=== PATIENT | female | born 1960 | race Caucasian/White ===

== ENCOUNTER 2024-11-27 12:02 | Emergency (ER) | payer BC, SELFPAY ==
--- OUTSIDE RECORDS SUMMARY | 2024-11-26 08:30 | XMS_ITS | Encounter Summary ---
Author Organization [facility] Address [address] [place] [address] Care Team Providers Care Small Business Sales Representative Name Role Phone Lakeisha Figueroa MD Primary Care Provider [phone] Reason for Visit * Reason Comments Diabetes Fsbs 134 Palpitations Encounter Details Date Type Department Care Team (Late st Contact Info) Description 11/26/2024 8:30 AM EDT Office Visit Adult Medicine [address] [phone] Lakeisha Figueroa MD [address] [place] [address] Viral illness (Primary Dx); Type 2 diabetes mellitus with obesity; Hyperlipidemia LDL goal <70; Gastroesophageal reflux disease without esophagitis; Palpitations Social History Tobacco Use Types Packs/Day Years Used Date Smoking Tobacco: Former Cigarettes Q uit: 02/13/1991 Smokeless Tobacco: Never Tobacco Cessation:Counseling Given: Not Answered Alcohol Use Standard Drinks/Week Comments Yes 0 (1 standard drink = 0.6 oz pur e alcohol) Comments Unknown Sex and Gender Information Value Date Recorded Sex Assigned at Female 01/15/2024 5:32 PM EST Legal Sex Female 10:43 AM EST Gender Identity Female 01/15/2024 5:32 PM EST Sexual Orientation Straight 01/15/2024 5: 32 PM EST documented as of this encounter Last Filed Vital Signs Vital Sign Reading Time Taken Comments Blood Pressure 112/60 11/26/2024 8:25 AM EDT Pulse 102 11/26/2024 8:25 AM EDT Temperature 35.8 C (96.4 F) 11/26/2024 8:25 AM EDT Respiratory Rate 16 11/26/2024 8:25 AM EDT Oxygen Saturation 95% 11/26/2024 8:25 AM EDT Inhaled Oxygen Concentration - - Weight 74.6 kg (164 lb 8 oz) 11/26/2024 8:25 AM EDT Height 157.5 cm (5' 2 ) 11/26/2024 8:25 AM EDT Body Mass Index 30.09 11/26/2024 8:25 AM EDT documented in this encounter Ordered Prescriptions Prescription Sig Dispense Quantity Refills Last Filled Start Date End Date metFORMIN XR (GLUCOPHAGE-XR) 500 mg 24 hr tablet Take 2 tablets (1,000 mg total) by mouth 1 (one) time each day with breakfast. 180 tablet 1 11/26/2024 documented in this encounter Progress Notes * Lakeisha Figueroa MD - 11/26/2024 8:30 AM EDT Chief Complaint: Chief Complaint Patient presents with Diabetes Fsbs 134 Palpitations IDENTIFIER: Cheryl Flowers is a 64 y.o. old female HPI She comes for evaluation with [id number] diabetes with obesity, GE reflux, elevated cholesterol. She recently had a glycohemoglobin rise from 6.9 up to 8 and was started on Ozempic, she took 4 doses total and after each dose she developed some palpitations which lasted for a while and then stopped. She has discontinued taking the Ozempic, her last dose was 9 days ago. She notes that she is still taking the metformin 1 a day as well as Lipitor for her cholesterol and omeprazole for reflux with control of the reflux and reasonable control of the cholesterol. She notes that a month ago she did test positive for COVID. 5 days ago she developed a fever with a temp up to 101, she did not retest for COVID, she has not had any significant shortness of breath, no sputum production, no sore throat or ear pain. She has not had any Tylenol or Advil since yesterday and is not running a fever today. 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 Surgical History: Surgical History[1] Family History: Family History[2] Social History: Social History Tobacco Use Smoking status: Former Current packs/day: 0.00 Types: Cigarettes Quit date: 02/13/1991 Years since quittin.8 Smokeless tobacco: Never Substance Use Topics Alcohol use: Yes Allergies: Latex Medications: Medications Taking[3] Medication Discontinued/Reordered: Medications Discontinued During This Encounter Medication Reason semaglutide (OZEMPIC) 0.25 mg or 0.5 mg (2 mg/3 mL) injection pen metFORMIN XR (GLUCOPHAGE-XR) 500 mg 24 hr tablet Reorder Vitals: Blood pressure 112/60, pulse 102, temperature 35.8 ??C (96.4 ??F), temperature source Temporal, resp. rate 16, height 1.575 m (62 ), weight 74.6 kg (164 lb 8 oz), SpO2 95%. Body mass index is 30.09 kg/m??.BMI is greater than 25.0 (above the normal range) - see Plan Physical Exam: General: patient is in no acute distress. Tympanic membranes clear, no air fluid levels or erythema. Pharynx clear without tonsillar enlargement or exudates. Neck supple without adenopathy, no thyromegaly. Lungs clear with auscultation. Heart: regular S1S2 without murmur, rub or gallop. Extremitieswithout cyanosis, clubbing or edema. Labs: Lab Results Component Value Date CHOL 208 (H) 10/17/2024 TRIG 164 (H) 10/17/2024 HDL 59 10/17/2024 LDLCALC 116 (H) 10/17/2024 VLDL 32.8 10/17/2024 NONHDLC 149 (H) 10/17/2024 CHOLHDL 3.5 10/17/2024 Lab Results Component Value Date HGBA1C 8.0 (H) 10/17/2024 Lab Results Component Value Date GLUCOSE 158 (H) 10/17/2024 CALCIUM 9.5 10/17/2024 NA 137 10/17/2024 K 4.3 10/17/2024 CO2 26 10/17/2024 CL 104 10/17/2024 BUN 22 10/17/2024 CREATININE 0.71 10/17/2024 Impression: 1. Viral illness 2. Type 2 diabetes mellitus with obesity 3. Hyperlipidemia LDL goal <70 4. Gastroesophageal reflux disease without esophagitis 5. Palpitations Assessment and Plan: Her glycohemoglobin has gone up and she is not tolerating the Ozempic, she has not had any palpitations since stopping the Ozempic and she will continue off the medication, if she is having recurrentpalpitations she will seek repeat medical attention. Reflux remains controlled on omeprazole which she will continue. Given the elevated glycohemoglobin she will increase the metformin to 1000 mg daily and continue with strict low sugar diet, continue as well with a low-cholesterol diet and the Lipitor for her cholesterol with LDL 116, goal would be less than 100. She does appear to have a viral respiratory syndrome, needs to wait until she has been fever free and feeling well for a week before getting the flu vaccine and to wait 90 days before getting the COVID-vaccine. Her lungs are clear on exam today and she will continue with conservative treatment. She will keep her scheduled Januaryappointment. Myself and my colleagues have maintained a long-term, longitudinal relationship with this patient, overseeing care of chronic conditions including diabetes with obesity, elevated cholesterol, GE reflux. This care relationship has significantly influenced my decision making and treatment plans during today's encounter. [1] Past Surgical History: Procedure Laterality Date BREAST BIOPSY Left 1999ish neg BREAST SURGERY Right 1991 blocked milk duct SECTION COLONOSCOPY 09/26/2011 tics; repeat in ten yrs COLONOSCOPY 11/26/2021 diverticulosis LITHOTRIPSY Right 2013 TUBAL LIGATION [2] Family History Problem Relation Name Age of Onset Other (Other: endocarditis) Mother , 60 crohns disease Colon polyps Father dxd 60s, dementia, Other (Other: hepatitis C) Brother Diabetes Maternal Grandmother Other (Other: old age) Paternal Grandmother 102 Crohn's disease Son at 27, overdose Breast cancer Other mat cousin dx 45 [3] Outpatient Medications Marked as Taking for the 11/26/24 encounter (Office Visit) with Lakeisha Figueroa MD Medication Sig Dispense Refill atorvastatin (LIPITOR) 20 mg tablet TAKE 1 TABLET BY MOUTH EVERYDAY AT BEDTIME 90 tablet 1 blood sugar diagnostic (FreeStyle Lite Strips) test strip Use daily fluocinonide (LIDEX) 0.05 % topical solution Apply topically 1 (one) time each day. 60 mL 1 FREESTYLE LANCETS MISC Use to check fasting blood glucose once daily. E11.69 hydrocortisone (WESTCORT) 0.2 % cream APPLY TO THE AFFECTED AREAS TWICE DAILY NEEDED metFORMIN XR (GLUCOPHAGE-XR) 500 mg 24 hr tablet Take 2 tablets (1,000 mg total) by mouth 1 (one) time each day with breakfast. 180 tablet 1 omeprazole (PRILOSEC) 20 mg tablet,delayed release (DR/EC) Take 1 Tablet by mouth daily. [DISCONTINUED] metFORMIN XR (GLUCOPHAGE-XR) 500 mg 24 hr tablet TAKE 1 TABLET BY MOUTH EVERY DAY WITH BREAKFAST 90 tablet 1 documented in this encounter Plan of Treatment Upcoming Encounters Date Type Department Care Team (Late st Contact Info) Description 02/05/2025 3:30 PM EST Office Visit Adult Medicine [address] [phone] Lakeisha Figueroa MD [address] [place] [address] documented as of this encounter Visit Diagnoses Diagnosis Viral illness- Primary Unspecified viral infection, in conditions classified elsewhere and of unspecified site Type 2 diabetes mellitus with obesity Hyperlipidemia LDL goal <70 Other and unspecified hyperlipidemia Gastroesophageal reflux disease without esophagitis Esophageal reflux Palpitations documented in this encounter Discontinued Medications Medication Sig Discontinue Reason Start Date End Da te semaglutide (OZEMPIC) 0.25 mg or 0.5 mg (2 mg/3 mL) injection penIndications:Type 2 diabetes mellitus with obesity Inject 0.25 mg under the skin every 7 (seven) days. Then increase to 0.5 mg after 4 weeks 10/22/2024 11/26/2024 metFORMIN XR (GLUCOPHAGE-XR) 500 mg 24 hr tablet TAKE 1 TABLET BY MOUTH EVERY DAY WITH BREAKFAST Reorder 09/16/2024 11/26/2024 documented as of this encounter Care Teams Small Business Sales Representative Relationship Specialty Start Date End Date Lakeisha Figueroa MD [address] [place] [address] PCP - General Internal Medicine 02/01/1995 documented as of this encounter
--- NOTE | ~2024-11-27 | CT_ITS ---
CLINICAL HISTORY: shortness of breath, elevated D-dimer CTA chest with 3-D postprocessing Comparison: None available Findings: Study quality is adequate for the diagnosis of pulmonary embolism. No pulmonary embolism. Heart size within normal limits. RV/LV ratio is normal. No calcified coronary artery disease. Pericardial fluid measuring up to 5 mm in thickness. No aortic dissection or aneurysm. Trace calcified atherosclerotic disease. No lymphadenopathy. No pulmonary pathology. No pneumothorax or pleural effusion. No acute osseous or soft tissue abnormality. No acute pathology in the imaged portion of the upper abdomen. Decreased attenuation of the liver. Impression: No pulmonary embolism or acute pulmonary pathology. This document has been electronically signed by: Rosa Rene MD on 11/27/2024 17:48:35
--- NOTE | ~2024-11-27 | XR_ITS ---
EXAMINATION: XR CHEST CLINICAL INFORMATION: fever, JIMENEZ COMPARISON: None available. TECHNIQUE: PA and lateral views. FINDINGS: No consolidation, pleural fissure pneumothorax. Mild prominence of the interstitial lung markings. Cardiomediastinal silhouette size is normal. Mild multilevel thoracic spondylosis. Vascular clips in the right upper quadrant abdomen and likely cholecystectomy. XR/XR chest 2V IMPRESSION: Acute small airway inflammatory processes should be considered in the correct clinical settings. Electronically signed by: Dhruv Harris MD 11/27/2024 12:41 PM EDT
[2024-11-27 12:10] VITALS: BP 135/67; PULSE 95; RESP 20; TEMP 36.4; O2SAT 96; BMI 29.7
--- NOTE | 2024-11-27 12:11 | ED.GENADULT ---
HPI - General Adult General Chief complaint: Fever Stated complaint: flu symptoms Time Seen by Provider: 11/27/24 13:08 Source: patient and RN notes reviewed Mode of arrival: ambulatory Limitations: no limitations History of Present Illness ED Provider: Simin Bennett PA-C [facility] narrative: This is a 64-year-old female, with a past medical history of diabetes, hyperlipidemia, and GERD who presents emergency department with concerns of flu-like symptoms for the past week. Patient reports a 1 week history of body aches, fatigue, and a non-productive cough. Patient also reports fevers up to 101.3 at home and associated chills. Patient denies any nasal congestion, sore throat, sinus pressure, headache, chest pain, or lightheadedness. Patient reports taking Tylenol PM for the fever and body aches, with her last dose being 11 am this morning. Patient additionally reports loss of appetite, but drinking plenty of water. Reports some chest palpitations and dyspnea on exertion. Patient reports seeing her primary care provider yesterday in office, who she instructed she was no longer taking her Ozempic prescription, which her PCP doubled her metformin dose and discontinued the Ozempic. No other complaints or concerns at this time. MD complaint: Cough, body aches Onset (ago): day(s) Severity: moderate Relieving factors: none Exacerbating factors: none Associated symptoms: cough, fever/chills, loss of appetite, malaise, shortness of breath and weakness Treatments prior to arrival: none Related Data Previous Rx's ?Medication ?Instructions ?Recorded doxycycline monohydrate 100 mg 100 mg PO BID #14 caps 11/27/24 capsule Allergies Allergy/AdvReac Type Severity Reaction Status Date / Time latex Allergy Rash Verified 11/27/24 12:15 Review of Systems Review of Systems: Yes all other systems are reviewed and are negative Constitutional: Constitutional: Reports as per [facility] Social History Social History Alcohol intake: current Alcohol intake frequency: a few times a week Smoked in Last 30 Days: No Use of substances other than those prescribed or required for medical reasons: Yes Substance Use Type: Marijuana Advance Directives: No Advance Directives Information Provided: Yes Physical Exam ED Vital Signs: Vital Signs - 24 hr 11/27/24 18:13 11/27/24 18:37 11/27/24 19:07 Temperature 99.1 F 99.1 F Pulse Rate 88 108 H 108 H Respiratory Rate 20 20 Blood Pressure 136/81 000/00 L Pulse Oximetry 92 92 92 Oxygen Delivery Method Room Air Room Air Room Air BMI result Body Mass Index 29.7 Const General: cooperative, no acute distress, alert and awake Orientation/consciousness: patient oriented x3 Limitations: no limitations HENMT Head: Yes normal to inspection, Yes normocephalic and Yes atraumatic Ears: hearing grossly normal bilaterally and TM's normal bilaterally General nose exam: Normal external nose present Face and sinus: Yes normal facial exam Mouth: Normal oral and palatal mucosa present, oropharynx normal and moist mucous membranes Throat: Yes posterior oropharynx normal Eyes General: appearance normal, both eyes and all related structures Eyelids: Yes eyelids normal Conjunctivae: conjunctivae normal Sclerae: sclerae normal Pupils: Equal, round and reactive pupils present EOM: EOMs intact bilaterally Neck Neck: Yes normal visual inspection, Yes full ROM and Yes no lymphadenopathy Lymphatic: no lymphadenopathy noted Chest Chest palpation & inspection: normal inspection of the chest Resp Effort & Inspection: normal respiratory effort Auscultation: clear to auscultation bilaterally Cardio Jugular venous distension: no JVD Palpation: normal PMI Rate: regular rate Rhythm: regular rhythm Heart sounds: S1 normal heart sound present and S2 normal heart sound present GI Other: Abdomen is soft, nontender, nondistended Inspection: Yes normal to inspection Palpation (GI): Soft to palpation and nontender Skin General skin exam: no rashes or lesions noted Trauma: no lacerations or abrasions Wounds: no wounds Neuro General: patient oriented x3 Cranial nerves: Yes Equal, round and reactive pupils present Extrem Other: No calf tenderness, no pedal edema noted. General: Yes normal to inspection Right upper extremity: normal to inspection Left upper extremity: normal to inspection Right lower extremity: normal to inspection Left lower extremity: normal to inspection Course Course Course Narrative: This is a Rapid Medical Examination (RME) performed by Rochelle Bryant PA-C in triage. Full HPI, ROS, assessment and treatment plan per primary provider in the Main ED. Hx: 64 yo F here w/ flu like sx x 7 days. reports fever, myalgias, poor appetite, JIMENEZ. TMAX 101.3F . took tylenol cold/flu around 1110 this morning. started ozempic 4-5 wks ago for her DM, however has since discontinued this d/t SE. patient reports covid infection 3 weeks ago. Plan: labs, viral swabs, cxr Consultations Consultation #1: Attending note:Regino The patient is a 64-year-old female who presents with respiratory symptoms and a fever. She had COVID a few weeks ago. She now feels as if she has gotten a new respiratory syndrome with shortness of breath and a cough and a fever. Her CBC is significant for a normal white blood count of 8.5 but with a lymphocyte predominance. She has only 24% neutrophils. She has 57% lymphocytes, 11% atypical lymphocytes, and 7% bands. Because COVID has been describe has been thrombogenic and since she had some oxygen saturations that seemed to be in the low 90s despite a clear chest x-ray and fairly clear lungs on exam we sent a D-dimer. This was elevated. Therefore a CT pulmonary angiogram was done. The CT of pulmonary angiogram really does not show much pathology at all. There was no evidence of pulmonary emboli or significant lung disease. Ultimately to address her oxygen saturations which seemed to sometimes go to the low 90s she was instructed in the use of an albuterol inhaler. She will also be started on a course of doxycycline. She should follow up with the regular doctor next week. Time: 19:05 Medications Administered Discontinued Medications Generic Name Dose Route Start Last Admin Trade Name Freq PRN Reason Stop Dose Admin Doxycycline Monohydrate 100 mg 11/27/24 18:53 11/27/24 19:07 Doxycycline Monohydrate 100 Mg Capsule PO 11/27/24 18:54 100 mg ONCE ONE Administration Iohexol 100 ml 11/27/24 16:55 11/27/24 16:58 Iohexol 350 Mg/Ml 100 Ml Infus..Btl IV 11/27/24 16:56 65 ml ONCE ONE Administration Medical Decision Making Medical Decision Making [facility] Narrative: This is a 64-year-old female, with a past medical history of diabetes, hyperlipidemia, and GERD who presents emergency department with concerns of flu-like symptoms for the past week. On arrival, pt is well appearing, under no acute distress, vital signs normal. Most likely diagnosis at this time is viral URI due to 1 week history of fever, body aches, weakness, decreased appetite, JIMENEZ, and chills. Flu and COVID considered due to viral symptoms, but less likely as viral serology came back negative. Bronchitis considered due to nonproductive cough, but less likely without predisposing illness. Bacterial pneumonia considered but less likely due to negative CXR and lack of productive cough. Pulmonary embolism considered but unlikely without shortness of breath, recent travel, or chest pain or discomfort. 4:45 PM 11/27/2024 (Simin Bennett PA-C): Patient's overall workup today was reassuring, she has no leukocytosis, stable H&H, she does have slight elevation in AST and ALT at 67 and 68, CRP elevated at 3.05, troponin less than 2.7, urine with trace ketones, C viral panel negative. COVID, flu negative. Chest x-ray does not show a pneumonia. EKG normal sinus rhythm with no acute ischemic changes. Patient was seen and evaluated by my attending physician, Dr. Lacy, who given patient recently had a COVID infection, will obtain D-dimer to ensure no PE. D-dimer was found to be elevated at 673. Given this, CTA was ordered. This is pending at this time. Her vitals remained stable, she is afebrile, speaking full sentences under no acute distress. We will continue to closely monitor. Vital signs remain to be normal. 5:42 PM 11/27/2024 (Simin Bennett PA-C): Sign-out given to my attending physician, Dr. Lacy pending CTA. Differential Diagnosis Differential Diagnoses: The differential diagnosis associated with the presentation includes See above Admission/Observation Consideration of admission/observation: Escalation of care including admission/observation considered Lab Data [facility] Lab Attestation statement: I reviewed the patient's lab results. See [facility] 11/27/24 12:24 11/27/24 12:24 Labs: Lab Results 11/27/24 11/27/24 11/27/24 Range/Units 12:24 13:20 14:38 WBC 8.5 (4.8-10.8) X10*3/uL RBC 4.28 (4.20-5.50) X10*6/uL Hgb 13.7 (12.0-16.0) g/dl Hct 40.1 (37.0-47.0) % MCV 93.7 (80.0-98.0) fL MCH 32.0 (27.0-33.0) pg MCHC 34.2 (31.0-35.0) g/dl RDW 12.7 (11.0-16.0) % Plt Count 167 (160-400) X10*3/uL MPV 9.4 (9.4-12.3) fL Immature Gran % (Auto) Cancelled Neut % (Auto) Cancelled Lymph % (Auto) Cancelled [place] % (Auto) Cancelled Eos % (Auto) Cancelled Baso % (Auto) Cancelled Lymph # (Auto) Cancelled [place] # (Auto) Cancelled Eos # (Auto) Cancelled Baso # (Auto) Cancelled Abs Immat Gran (auto) Cancelled Absolute Neuts (auto) Cancelled Absolute Nucleated RBC 0.000 (0.0-0.012) X10*3/uL Nucleated RBC % (auto) 0.0 (0.0-0.2) /100WBC Neutrophils % (Manual) 24 L (45-73) % Band Neutrophils % 7 H (3-5) % Lymphocytes % (Manual) 57 H (20-40) % Atypical Lymphs % (Man) 11 H (0-6) % Monocytes % (Manual) 1 L (2-11) % Abs Neuts (Manual) 2.6 (2.0-8.3) X10*3/uL Lymphocytes # (Manual) 4.8 (1.2-4.9) X10*3/uL Atyp Lymphs # (Manual) 0.9 x10*3/uL Monocytes # (Manual) 0.1 (0.1-1.2) X10*3/uL Platelet Estimate NORMAL (NORMAL) Large Platelets PRESENT Plt Morphology Comment NORMAL RBC Morphology NORMAL Smear Path Review SEE NOTE D-Dimer High Sensitivty NG/ML Sodium 136 (135-145) mmol/L Potassium 3.5 (3.3-5.1) mmol/L Chloride 103 (96-108) mmol/L Carbon Dioxide 24 (22-29) mmol/L Anion Gap 13 (12-20) BUN 10 (9-16) mg/dL Creatinine 0.66 (0.5-1.4) mg/dL Estim Creat Clear Calc 81.9 Estimated GFR > 60 Random Glucose 112 (60-115) mg/dL Calcium 8.6 (8.4-10.2) mg/dL Magnesium 1.9 (1.6-2.6) mg/dL Total Bilirubin 0.6 (0.0-1.0) mg/dL AST 67 H (5-31) U/L ALT 68 H (0-31) U/L Alkaline Phosphatase 57 (39-117) U/L Troponin I High Sens < 2.7 (<3.5-17.0) ng/L C-Reactive Protein 3.05 H (< or = 0.50) mg/dL NT-Pro-B Natriuret Pep 44.5 (<300) pg/mL Total Protein 6.8 (6.5-8.0) g/dL Albumin 3.8 (3.5-5.0) g/dL Lipase 24 (8-78) U/L Urine Color Yellow Urine Appearance Clear Urine pH 6.5 (5.0-9.0) Ur Specific [place] 1.010 (1.005-1.025) Urine Protein Negative (Neg-Trace) mg/dL Urine Glucose (UA) Negative (Negative) mg/dL Urine Ketones Trace (Negative) mg/dL Urine Blood Negative (Negative) Urine Nitrite Negative (Negative) Ur Leukocyte Esterase Negative (Negative) Respiratory Panel [place] See Note Adenovirus (Rapid PCR) Not Detected (Not Detect.) B.pert (TEM-PCR) Not Detected (Not Detect.) B.parapertussis DNA PCR Not Detected (Not Detect.) C. pneumoniae DNA (PCR) Not Detected (Not Detect.) Coronavirus OC43 (PCR) Not Detected (Not Detect.) Coronavirus HKU1 (PCR) Not Detected (Not Detect.) Coronavirus 229E (PCR) Not Detected (Not Detect.) COVID-19 (DORON) Negative (Negative) COVID-19 Clin Com See Note Coronavirus NL63 (PCR) Not Detected (Not Detect.) Human Metapneumovir PCR Not Detected (Not Detect.) Influenza Type A (TAINA) Negative (Negative) Influenza A (RT-PCR) Not Detected (Not Detect.) Influenza A (H1) PCR Not Detected (Not Detect.) Influ A (H1/09) PCR Not Detected (Not Detect.) Influenza A (H3) PCR Not Detected (Not Detect.) Influenza Type B (TAINA) Negative (Negative) Influenza B (RT-PCR) Not Detected (Not Detect.) Influenza A & B Note See Note M. pneumoniae (PCR) Not Detected (Not Detect.) Parainfluenza 1 (PCR) Not Detected (Not Detect.) Parainfluenza 2 (PCR) Not Detected (Not Detect.) Parainfluenza 3 (PCR) Not Detected (Not Detect.) Parainfluenza 4 (PCR) Not Detected (Not Detect.) RSV (PCR) Not Detected (Not Detect.) Entero/Rhino (PCR) Not Detected (Not Detect.) SARS-CoV-2 RNA (RT-PCR) Not Detected (Not Detect.) 11/27/24 Range/Units 15:38 WBC (4.8-10.8) X10*3/uL RBC (4.20-5.50) X10*6/uL Hgb (12.0-16.0) g/dl Hct (37.0-47.0) % MCV (80.0-98.0) fL MCH (27.0-33.0) pg MCHC (31.0-35.0) g/dl RDW (11.0-16.0) % Plt Count (160-400) X10*3/uL MPV (9.4-12.3) fL Immature Gran % (Auto) Neut % (Auto) Lymph % (Auto) [place] % (Auto) Eos % (Auto) Baso % (Auto) Lymph # (Auto) [place] # (Auto) Eos # (Auto) Baso # (Auto) Abs Immat Gran (auto) Absolute Neuts (auto) Absolute Nucleated RBC (0.0-0.012) X10*3/uL Nucleated RBC % (auto) (0.0-0.2) /100WBC Neutrophils % (Manual) (45-73) % Band Neutrophils % (3-5) % Lymphocytes % (Manual) (20-40) % Atypical Lymphs % (Man) (0-6) % Monocytes % (Manual) (2-11) % Abs Neuts (Manual) (2.0-8.3) X10*3/uL Lymphocytes # (Manual) (1.2-4.9) X10*3/uL Atyp Lymphs # (Manual) x10*3/uL Monocytes # (Manual) (0.1-1.2) X10*3/uL Platelet Estimate (NORMAL) Large Platelets Plt Morphology Comment RBC Morphology Smear Path Review D-Dimer High Sensitivty 673 NG/ML Sodium (135-145) mmol/L Potassium (3.3-5.1) mmol/L Chloride (96-108) mmol/L Carbon Dioxide (22-29) mmol/L Anion Gap (12-20) BUN (9-16) mg/dL Creatinine (0.5-1.4) mg/dL Estim Creat Clear Calc Estimated GFR Random Glucose (60-115) mg/dL Calcium (8.4-10.2) mg/dL Magnesium (1.6-2.6) mg/dL Total Bilirubin (0.0-1.0) mg/dL AST (5-31) U/L ALT (0-31) U/L Alkaline Phosphatase (39-117) U/L Troponin I High Sens (<3.5-17.0) ng/L C-Reactive Protein (< or = 0.50) mg/dL NT-Pro-B Natriuret Pep (<300) pg/mL Total Protein (6.5-8.0) g/dL Albumin (3.5-5.0) g/dL Lipase (8-78) U/L Urine Color Urine Appearance Urine pH (5.0-9.0) Ur Specific [place] (1.005-1.025) Urine Protein (Neg-Trace) mg/dL Urine Glucose (UA) (Negative) mg/dL Urine Ketones (Negative) mg/dL Urine Blood (Negative) Urine Nitrite (Negative) Ur Leukocyte Esterase (Negative) Respiratory Panel [place] Adenovirus (Rapid PCR) (Not Detect.) B.pert (TEM-PCR) (Not Detect.) B.parapertussis DNA PCR (Not Detect.) C. pneumoniae DNA (PCR) (Not Detect.) Coronavirus OC43 (PCR) (Not Detect.) Coronavirus HKU1 (PCR) (Not Detect.) Coronavirus 229E (PCR) (Not Detect.) COVID-19 (DORON) (Negative) COVID-19 Clin Com Coronavirus NL63 (PCR) (Not Detect.) Human Metapneumovir PCR (Not Detect.) Influenza Type A (TAINA) (Negative) Influenza A (RT-PCR) (Not Detect.) Influenza A (H1) PCR (Not Detect.) Influ A (H1/09) PCR (Not Detect.) Influenza A (H3) PCR (Not Detect.) Influenza Type B (TAINA) (Negative) Influenza B (RT-PCR) (Not Detect.) Influenza A & B Note M. pneumoniae (PCR) (Not Detect.) Parainfluenza 1 (PCR) (Not Detect.) Parainfluenza 2 (PCR) (Not Detect.) Parainfluenza 3 (PCR) (Not Detect.) Parainfluenza 4 (PCR) (Not Detect.) RSV (PCR) (Not Detect.) Entero/Rhino (PCR) (Not Detect.) SARS-CoV-2 RNA (RT-PCR) (Not Detect.) Independent Interpretation I performed an independent interpretation of an: EKG Interpretation: EKG normal sinus rhythm at a ventricular rate of 82 beats per minute, IN interval 156, QT QTC 392/457, no STEMI. Radiology Impression Discussion of test interpretation with radiology: I have reviewed the radiologist's reading. Radiologist Impression: EXAMINATION: XR CHEST CLINICAL INFORMATION: fever, JIMENEZ COMPARISON: None available. TECHNIQUE: PA and lateral views. FINDINGS: No consolidation, pleural fissure pneumothorax. Mild prominence of the interstitial lung markings. Cardiomediastinal silhouette size is normal. Mild multilevel thoracic spondylosis. Vascular clips in the right upper quadrant abdomen and likely cholecystectomy. XR/XR chest 2V IMPRESSION: Acute small airway inflammatory processes should be considered in the correct clinical settings. Electronically signed by: Dhruv Harris MD 11/27/2024 12:41 PM EDT Dictated By: Dhruv Trinh MD Findings: Study quality is adequate for the diagnosis of pulmonary embolism. No pulmonary embolism. Heart size within normal limits. RV/LV ratio is normal. No calcified coronary artery disease. Pericardial fluid measuring up to 5 mm in thickness. No aortic dissection or aneurysm. Trace calcified atherosclerotic disease. No lymphadenopathy. No pulmonary pathology. No pneumothorax or pleural effusion. No acute osseous or soft tissue abnormality. No acute pathology in the imaged portion of the upper abdomen. Decreased attenuation of the liver. Impression: No pulmonary embolism or acute pulmonary pathology. This document has been electronically signed by: Rosa Rene MD on 11/27/2024 17:48:35 Dictated By: Rosa Davalos MD Discharge Plan Discharge Clinical Impression: Acute respiratory infection Patient Disposition: Home, Self-Care Additional Instructions: Your testing in the emergency room today is very reassuring from the point of view of any dangerous process. Please take the antibiotic doxycycline twice a day as prescribed. Next dose tomorrow. Please use the albuterol inhaler for coughing or any sense of shortness of breath. Please contact your primary care doctor tomorrow to set up a follow up appointment next week to see how you are doing. Return to the emergency room if significantly worse at any time. Prescriptions: New doxycycline monohydrate 100 mg capsule 100 mg PO BID Qty: 14 0RF Referrals: Lakeisha Figueroa MD [Primary Care Provider, Internal Medicine] Interventions: ED Discharge Assessment Last Done: 11/27/24 19:07 Discharge Date/Time: 11/27/24 19:09 Print Language: Afghan
[2024-11-27 12:34] LABS: Hematocrit 40.1 % (37.0-47.0); Hemoglobin 13.7 g/dl (12.0-16.0); Mean Corpuscular HGB Conc 34.2 g/dl (31.0-35.0); Mean Corpuscular Hemoglobin 32.0 pg (27.0-33.0); Mean Corpuscular Volume 93.7 fL (80.0-98.0); NRBC Abs Auto 0.000 X10*3/uL (0.0-0.012); NRBC Pct Auto 0.0 /100WBC (0.0-0.2); Platelet Count 167 X10*3/uL (160-400); Red Blood Count 4.28 X10*6/uL (4.20-5.50); White Blood Count 8.5 X10*3/uL (4.8-10.8)
[2024-11-27 12:50] LABS: Alanine Aminotransferase 68 U/L (0-31); Albumin Level 3.8 g/dL (3.5-5.0); Alkaline Phosphatase 57 U/L (39-117); Anion Gap 13 (12-20); Aspartate Amino Transferase 67 U/L (5-31); Blood Urea Nitrogen 10 mg/dL (9-16); Calcium 8.6 mg/dL (8.4-10.2); Carbon Dioxide 24 mmol/L (22-29); Chloride 103 mmol/L (96-108); Creatinine Clr Calc Pharmacy 81.9; Estimated Glomerular Filt Rate > 60; Magnesium 1.9 mg/dL (1.6-2.6); Potassium 3.5 mmol/L (3.3-5.1); Sodium 136 mmol/L (135-145); Total Protein 6.8 g/dL (6.5-8.0)
[2024-11-27 12:52] LABS: IDNOW Serial# 152EDE1D; Influenza B2 Negative (Negative)
[2024-11-27 12:53] LABS: COVID-19 Test Negative (Negative); IDNOW Serial# 16C4AD1C
[2024-11-27 13:37] LABS: Lipase 24 U/L (8-78)
[2024-11-27 13:46] LABS: NT Pro B Type Natriuretic Pept 44.5 pg/mL (<300)
--- NOTE | 2024-11-27 13:55 | ECG_ITS ---
Test Reason : SOB Blood Pressure : */* mmHG Vent. Rate : 82 BPM Atrial Rate : 82 BPM P-R Int : 156 ms QRS Dur : 76 ms QT Int : 392 ms P-R-T Axes : 45 9 8 degrees QTcB Int : 457 ms Normal sinus rhythm Normal ECG No previous ECGs available Referred By: Simin Bennett Electronically Signed By: Mele Delcid
[2024-11-27 14:07] LABS: Atypical Lymph Absolute Manual 0.9 x10*3/uL; Atypical Lymphs Percent Manual 11 % (0-6); Band Neutrophils Percent 7 % (3-5); Lymphocytes Absolute Manual 4.8 X10*3/uL (1.2-4.9); Lymphocytes Percent Manual 57 % (20-40); Monocytes Absolute Manual 0.1 X10*3/uL (0.1-1.2); Monocytes Percent Manual 1 % (2-11); Neutrophils Absolute Manual 2.6 X10*3/uL (2.0-8.3); Neutrophils Percent Manual 24 % (45-73)
[2024-11-27 14:08] LABS: RBC Morphology NORMAL
[2024-11-27 14:09] LABS: Large Platelet PRESENT
[2024-11-27 14:32] VITALS: BP 108/76; PULSE 84; RESP 16; TEMP 36.7; O2SAT 98
[2024-11-27 14:35] LABS: Chlamydia pneumoniae PCR Not Detected (Not Detect.); Coronavirus 229E PCR Not Detected (Not Detect.); Coronavirus HKU1 PCR Not Detected (Not Detect.); Coronavirus NL63 PCR Not Detected (Not Detect.); Coronavirus OC43 PCR Not Detected (Not Detect.); RSV PCR Not Detected (Not Detect.); Rhino/Enterovirus PCR Not Detected (Not Detect.); SARS-CoV-2 PCR Not Detected (Not Detect.)
[2024-11-27 14:38] LABS: Influenza A H1 PCR Not Detected (Not Detect.); Influenza A H1-2009 PCR Not Detected (Not Detect.); Influenza A H3 PCR Not Detected (Not Detect.)
[2024-11-27 14:45] LABS: Troponin-I High Sensitivity < 2.7 ng/L (<3.5-17.0)
[2024-11-27 14:46] LABS: Appearance Urine Clear; Glucose Urine UA Negative (Negative); PH 6.5 (5.0-9.0); Specific Gravity - Urine 1.010 (1.005-1.025)
[2024-11-27 15:57] LABS: D Dimer High Sensitivity 673 NG/ML
--- OUTSIDE RECORDS SUMMARY | 2024-11-27 16:02 | XMS_ITS ---
Author Name [facility] Organization Unknown Care Team Organization Name Specialty Phone Email Start Date End [facility] Lakeisha Figueroa Primary [facility] 12/21/2021
--- OUTSIDE RECORDS SUMMARY | 2024-11-27 16:02 | XMS_ITS | Clinical Summary ---
Author Organization [address] Address [address] [place] [phone] Phone Care Team Providers Care Office Electrician Name Role Phone Lakeisha Figueroa MD Primary Care Provider [phone] Allergies Active Allergy Reactions Criticality Noted Date Comments Latex Itching 11/29/2021 Medications blood sugar diagnostic (FreeStyle Lite Strips) test strip Use daily 09/19/19 24 Active hydrocortisone (WESTCORT) 0.2 % cream APPLY TO THE AFFECTED AREAS TWICE DAILY NEEDED 09/19/19 24 Active FREESTYLE LANCETS MISC Use to check fasting blood glucose once daily. E11.69 06/22/19 23 Active omeprazole (PRILOSEC) 20 mg tablet,delayed release (DR/EC) Take 1 Tablet by mouth daily. Active atorvastatin (LIPITOR) 20 mg tablet TAKE 1 TABLET BY MOUTH EVERYDAY AT BEDTIME 90 tablet 1 07/16/19 25 Active fluocinonide (LIDEX) 0.05 % topical solution Apply topically 1 (one) time each day. 60 mL 1 07/18/19 25 Active metFORMIN XR (GLUCOPHAGE-XR ) 500 mg 24 hr tablet Take 2 tablets (1,000 mg total) by mouth 1 (one) time each day with breakfast. 180 tablet 1 11/27/19 25 Active metFORMIN XR (GLUCOPHAGE-XR ) 500 mg 24 hr tablet TAKE 1 TABLET BY MOUTH EVERY DAY WITH BREAKFAST 90 tablet 1 09/17/19 25 025 Discontinued(Re order) semaglutide (OZEMPIC) 0.25 mg or 0.5 mg (2 mg/3 mL) injection penIndications :Type 2 diabetes mellitus with obesity Inject 0.25 mg under the skin every 7 (seven) days. 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 Encounters Date Type Department Care Team Description 11/26/2024 8:30 AM EDT Office Visit Adult Medicine [address] [phone] Lakeisha Figueroa MD Viral illness (Primary Dx); Type 2 diabetes mellitus with obesity; Hyperlipidemia LDL goal <70; Gastroesophageal reflux disease without esophagitis; Palpitations 11/18/2024 3:30 PM EDT Office Visit Adult [address] [phone] Sofia Jenkins PA Elevated blood pressure reading (Primary Dx); Type 2 diabetes mellitus with obesity; Obesity (BMI 30.0-34.9) 11/16/2024 11:15 AM EDT - 11/16/2024 11:59 PM EDT Hospital Encounter Radiology Department - [address] [phone] Breast screening Discharge Disposition: Home or Self Care 10/22/2024 8:45 AM EDT Office Visit Adult Medicine [address] [phone] Laekisha Figueroa MD Type 2 diabetes mellitus with obesity ([facility] V24, [facility] V28) (Primary Dx); Hypercholesteremia; Gastroesophageal reflux disease without esophagitis from Last 3 Months Immunizations Immunization Administration Dates Next Due Influenza Quadravalent, MDCK , 0.5ml, preservative free (Flucelvax) 6mo and older 11/07/2022,12/17/2021 Influenza Quadravalent, nayeli mbinant, 0.5ml, preservative free (Flublok) 18yo and older 12/29/2019 Influenza Quadrivalent, 0.5m l, preservative free (Fluarix; FluLaval; Fluzone) ages 6mo and older (Afluria) 3yo and older 12/06/2020 Influenza trivalent, 0.5mL, preservative free (Fluarix; FluLaval; Fluzone) ages 6mo and older (Afluria) 3 years and older 12/06/2020,12/29/2019 Influenza trivalent, MDCK, 0 .5mL, preservative free (Flucelvax) 6mo and older 11/17/2023 Influenza, Unspecified 11/17/2023,12/17/2021 Moderna SARS-CoV-2 COVID-19, mRNA, LNP-S, preservative free 12/16/2020 Pneumococcal conjugate 20 va lent (Prevnar 20, PCV 20) 2mo and older 04/16/2024 Td Tetanus diptheria (Tdvax) 7yo and older 05/29,11/16/1996 Tdap Tetanus diptheria acell ular pertussis (Boostrix; Adacel) 7yo and older 03/13/2024,05/02/2006 Surgical History Surgery Date Site/Laterality Comments SECTION TUBAL LIGATION COLONOSCOPY 09/26/2011 tics; repeat in ten yrs LITHOTRIPSY 2013 Right BREAST BIOPSY 2000ish Left neg BREAST SURGERY 1991 Right blocked milk duct COLONOSCOPY 11/26/2021 diverticulosis Medical History Medical History Date Comments GE reflux 12/26/2006 Hypercholesteremia 07/04/2011 Kidney stone 08/08/2013 Right, nonobstru cting Eczema 07/02/2015 Family History Medical History Relation Name Comments Other: hepatitis C Brother Colon polyps Father dxd 60s, vidhya ia, Diabetes Maternal Grandmother Other: endocarditis Mother , 60 crohns disease Breast cancer Other mat cousin dx 45 Other: old age Paternal Grandmother 102 Crohn's disease Son at 27, overdose Relation Name Status Comments Brother Father Maternal Grandmother Mother Other mat cousin dx 45 Paternal Grandmother Son Social History Tobacco Use Types Packs/Day Years [...] Orientation Straight 01/15/2024 5: 32 PM EST Obstetrics History Para Term AB IAB SAB Ectopic Multiple Livin g Live Births 2 2 2 2 Date Outcome GA Total Labor Labor/2nd/3rd Weight Sex Type Anes PTL Kathe A1 A5 Name Clin Term Term Last Filed Vital Signs Vital Sign Reading [...] Mass Index 30.09 11/26/2024 8:25 AM EDT Plan of Treatment Upcoming Encounters Date Type Department Care Team (Late st Contact Info) Description 02/05/2025 3:30 PM EST Office Visit Adult Medicine [address] [phone] Lakeisha Figueroa MD [address] [place], [place] Health Maintenance Due Date Last Done Comments Zoster Vaccines (1 of 2) 2011 HIV Screening 01/22/2022 Social Influencers of Health Screening 01/22/2022 Depression Screening 02/14/2024 Diabetes: Annual Retina Eye Exam 09/25/2024 09/26/2023 Diabetes: Annual Foot Exam 09/28/2024 09/29/2023 COVID-19 Vaccine ( season) 2024 01/05/2021, 12/16/2020, 06/14/2020, Additional history exists Influenza Vaccine (#1) 2024 , 11/17/2023, 11/07/2022, Additional history exists Diabetes: Blood Sugar Control Test (HGBA1C) 04/16/2025 10/17/2024, 07/11/2024, 04/10/2024, Additional history exists Diabetes: Annual Urine Albumin-Creatinine Ratio (uACR) 10/17/2025 10/17/2024, 04/10/2024, 09/13/2023 Diabetes: Annual GFR (Glomerular Filtration Rate) 10/17/2025 10/17/2024, 04/10/2024, 09/13/2023, Additional history exists Cervical Cancer Screening: HPV 06/08/2026 06/08/2021 Breast Cancer Screening 11/16/2026 11/17/19, 11/02/2023, 11/02/2023, Additional history exists Cholesterol Screening (Lipid Panel) 10/17/2029 10/17/2024, 07/11/2024, 04/10/2024, Additional history exists Colorectal Cancer Screening: Colonoscopy 11/29/2031 11/26/2021 DTaP,Tdap,and Td Vaccines (5 - Td or Tdap) 03/13/2034 03/13/2024, 05/29/2017, 05/02/2006, Additional history exists RSV Immunization Adult Patients (1 - 1-dose 75+ series) 2036 Hepatitis C Screening Completed 10/02/2012 Pneumococcal Vaccine: 50+ Years Completed 04/16/2024 HIB Vaccines Aged Out No longer eligi ble based on patient's age to complete this topic HPV Vaccines Aged Out No longer eligi ble based on patient's age to complete this topic Hepatitis A Vaccines Aged Out No long er eligible based on patient's age to complete this topic Hepatitis B Vaccines Aged Out No long er eligible based on patient's age to complete this topic IPV Vaccines Aged Out No longer eligi ble based on patient's age to complete this topic MMR Vaccines Aged Out No longer eligi ble based on patient's age to complete this topic Meningococcal ACWY Vaccine Aged Out N o longer eligible based on patient's age to complete this topic Meningococcal B Vaccine Aged Out No l onger eligible based on patient's age to complete this topic RSV Immunization Patients Under 20 months Aged Out No longer eligible based on patient's age to complete this topic Varicella Vaccines Aged Out No longer eligible based on patient's age to complete this topic Procedures Procedure Name Priority Date/Time Associated Diagnosis Comments MG MAMMO DIGITAL SCREENING W OZZY BILAT Routine 11/16/2024 11:25 AM EDT Breast screening COMPREHENSIVE METABOLIC PANEL Routine 10/17/2024 7:38 AM EDT Type 2 diabetes mellitus with obesity ([facility] V24, [facility] V28) HEMOGLOBIN A1C Routine 10/17/2024 7:38 AM EDT Type 2 diabetes mellitus with obesity ([facility] V24, [facility] V28) LIPID PANEL WITH REFLEX TO DIRECT LDL Routine 10/17/2024 7:38 AM EDT Hypercholesteremia MICROALBUMIN CREATININE URINE RATIO Routine 10/17/2024 7:38 AM EDT Type 2 diabetes mellitus with obesity ([facility] V24, [facility] V28) DIABETES FOOT EXAM Routine 09/29/2023 DIABETES EYE EXAM Routine 09/26/2023 COLONOSCOPY Routine 11/26/2021 HPV Routine 06/08/2021 HEPATITIS C SCREENING Routine 10/02/2012 from Last 3 Months or Most Recently Relevant to Health Maintenance Results * MG Mammo Digital Screening w Ozzy bilat (11/16/2024 11:25 AM EDT) Anatomical Region Laterality Modality Breast Bilateral Mammography 11/19/2024 1:00 PM EDT Impressions 11/19/2024 1:04 PM EDT No mammographic evidence of malignancy. BI-RADS CATEGORY: 1 - NEGATIVE RECOMMENDATION: Screening bilateral mammogram is recommended in 1 year. Mammo Location: [facility], [address] [place] [address], [id number], . -------- FINAL REPORT -------- Dictated By: Melanie Dominique Dictated Date: 11/19/2024 13:00 ET Assigned Physician: Melanie Dominique Reviewed and Electronically Signed By: Melanie Dominique Signed Date: 11/19/2024 13:04 ET Workstation ID: [id number] Transcribed By: Self Edit Transcribed Date: 11/19/2024 13:00 ET Narrative 11/19/2024 1:04 PM EDT Bilateral screening mammogram. CLINICAL: 64 years old, Female, routine annual exam. COMPARISON: Prior mammograms, latest from 11/02/2023. TECHNIQUE: Bilateral MLO and CC views were obtained digitally with 2-D C views and 3-D mammogram (digital breast tomosynthesis). Computer-aided detection was utilized in evaluation of this exam (CAD). FINDINGS: There is no evidence of suspicious mass or architectural distortion. No worrisome calcifications are evident. There has been no significant change from prior exam(s). BREAST DENSITY: C - The breasts are heterogeneously dense which may obscure small masses. Procedure Note Melanie Dominique MD - 11/19/2024 Bilateral screening mammogram. CLINICAL: 64 years old, Female, routine annual exam. COMPARISON: Prior mammograms, latest from 11/02/2023. TECHNIQUE: Bilateral MLO and CC views were obtained digitally with 2-D Cviews and 3-D mammogram (digital breast tomosynthesis). Computer-aideddetection was utilized in evaluation of this exam (CAD). FINDINGS: There is no evidence of suspicious mass or architectural distortion. Noworrisome calcifications are evident. There has been no significantchange from prior exam(s). BREAST DENSITY: C - The breasts are heterogeneously dense which mayobscure small masses. IMPRESSION: No mammographic evidence of malignancy. BI-RADS CATEGORY: 1 - NEGATIVE RECOMMENDATION: Screening bilateral mammogram is recommended in 1 year. Mammo Location: [facility], [address] [place] [address], [id number], . -------- FINAL REPORT -------- Dictated By: Melanie Dominique Dictated Date: 11/19/2024 13:00 ET Assigned Physician: Melanie Dominique Reviewed and Electronically Signed By: Melanie Dominique Signed Date: 11/19/2024 13:04 ET Workstation ID: [id number] Transcribed By: Self Edit Transcribed Date: 11/19/2024 13:00 ET Lakeisha Figueroa MD IMG BI PROCEDURES Final Result * (ABNORMAL) Lipid panel with reflex to direct LDL (10/17/2024 7:38 AM EDT) Cholesterol 208(H) 0 - 200 mg/dL LAB CHEMISTRY METHOD 10/17/2024 12:12 PM EDT [facility] Triglycerides 164(H) 0 - 150 mg/dL LAB CHEMISTRY METHOD 10/17/2024 12:12 PM EDT [facility] HDL 59 >=40 mg/dL LAB CHEMISTRY METHOD 10/17/2024 12:12 PM EDT [facility] LDL Calculated 116(H) 0 - 100 mg/dL LAB CHEMISTRY METHOD 10/17/2024 12:12 PM EDT [facility] Comment:Estimated LDL Calcul ated using equation: Total cholesterol - HDL cholesterol - (Triglycerides/5) VLDL Cholesterol Alireza 32.8 mg/dL LAB CHEMISTRY METHOD 10/17/2024 12:12 PM EDT [facility] Non HDL Chol. (LDL+VLDL) 149(H) <145 mg/dL LAB CHEMISTRY METHOD 10/17/2024 12:12 PM EDT [facility] Chol/HDL Ratio 3.5 0.0 - 4.4 LAB CHEMISTRY METHOD 10/17/2024 12:12 PM EDT [facility] Blood Venous blood specimen / Unknown Venipuncture / Unknown 10/17/2024 7:38 AM EDT 10/17/2024 10:35 AM EDT us Lakeisha Figueroa MD LAB BLOOD ORDERABLES Final Resul t Performing Organization Address City/[facility]/ZIP Co de Phone Number [facility] [address] [place] [address], [place] [phone] * Microalbumin creatinine urine ratio (10/17/2024 7:38 AM EDT) Creatinine, Urine 96.0 mg/dL LAB CHEMISTRY METHOD 10/17/2024 12:43 PM EDT [facility] Microalb, Ur 15.9 0.0 - 29.0 mg/L LAB CHEMISTRY METHOD 10/17/2024 12:43 PM EDT [facility] Microalb/Creat Ratio 17 <30 mg/g creat LAB CHEMISTRY METHOD 10/17/2024 12:43 PM EDT [facility] Urine Urine specimen obtained by clean catch procedure / Unknown Non-blood Collection / Unknown 10/17/2024 7:38 AM EDT 10/17/2024 10:34 AM EDT us Lakeisha Figueroa MD LAB URINE ORDERABLES Final Resul t Performing Organization Address City/[facility]/ZIP Co de Phone Number [facility] [address] [place] [address], [place] [phone] * (ABNORMAL) Hemoglobin A1c (10/17/2024 7:38 AM EDT) [facility] Hemoglobin A1C 8.0(H) <6.5 % LAB CHEMISTRY METHOD 10/17/2024 1:41 PM EDT [facility] Mean Bld Glu Estim. 183 mg/dL LAB CHEMISTRY METHOD 10/17/2024 1:41 PM EDT [facility] Blood Venous blood specimen / Unknown Venipuncture / Unknown 10/17/2024 7:38 AM EDT 10/17/2024 10:39 AM EDT us Lakeisha Figueroa MD LAB BLOOD ORDERABLES Final Resul t [facility] [address] [place] [address], [place] [phone] * (ABNORMAL) Comprehensive metabolic panel (10/17/2024 7:38 AM EDT) [facility] Sodium 137 133 - 145 mmol/L LAB CHEMISTRY METHOD 10/17/2024 12:12 PM [facility] Potassium 4.3 3.5 - 5.5 mmol/L LAB CHEMISTRY METHOD 10/17/2024 12:12 PM [facility] Chloride 104 96 - 110 mmol/L LAB CHEMISTRY METHOD 10/17/2024 12:12 PM [facility] CO2 26 21 - 32 mmol/L LAB CHEMISTRY METHOD 10/17/2024 12:12 PM [facility] Anion Gap 7 3 - 11 LAB CHEMISTRY METHOD 10/17/2024 12:12 PM [facility] Glucose 158(H) 70 - 100 mg/dL LAB CHEMISTRY METHOD 10/17/2024 12:12 PM [facility] BUN 22 5 - 25 mg/dL LAB CHEMISTRY METHOD 10/17/2024 12:12 PM [facility] Creatinine 0.71 0.50 - 1.10 mg/dL LAB CHEMISTRY METHOD 10/17/2024 12:12 PM [facility] eGFR 96 >=60 mL/min/1. 73m2 LAB CHEMISTRY METHOD 10/17/2024 12:12 PM [facility] Comment:Calculation based on the Chronic Kidney Disease Epidemiology Collaboration (CKD-EPI) equation refit without adjustment for race. BUN/Creatinine Ratio 31.0 LAB CHEMISTRY METHOD 10/17/2024 12:12 PM [facility] Calcium 9.5 8.5 - 10.5 mg/dL LAB CHEMISTRY METHOD 10/17/2024 12:12 PM [facility] AST (SGOT) 24 10 - 42 unit/L LAB CHEMISTRY METHOD 10/17/2024 12:12 PM [facility] ALT (SGPT) 40 10 - 60 unit/L LAB CHEMISTRY METHOD 10/17/2024 12:12 PM [facility] Alkaline Phosphatase 55 42 - 121 unit/L LAB CHEMISTRY METHOD 10/17/2024 12:12 PM [facility] Total Protein 7.2 6.0 - 8.0 g/dL LAB CHEMISTRY METHOD 10/17/2024 12:12 PM [facility] Albumin 4.3 3.2 - 5.0 g/dL LAB CHEMISTRY METHOD 10/17/2024 12:12 PM [facility] Total Bilirubin 0.5 0.0 - 1.4 mg/dL LAB CHEMISTRY METHOD 10/17/2024 12:12 PM [facility] Blood Venous blood specimen / Unknown Venipuncture / Unknown 10/17/2024 7:38 AM EDT 10/17/2024 10:35 AM EDT us Lakeisha Figueroa MD LAB BLOOD ORDERABLES Final Resul t [facility] [address] [place] [address], [place] [phone] * Diabetes Foot Exam (09/29/2023) [facility] Diabetes: Annual Foot Exam abstracted Historical Provider HEALTH MAINTENANCE Final Result * Diabetes Eye Exam (09/26/2023) [facility] Diabetes: Annual Retina Eye Exam abstracted Historical Provider HEALTH MAINTENANCE Final Result * Colonoscopy (11/26/2021) [facility] Colonoscopy abstract [facility] /sr Anatomical Region Laterality Modality Other Historical Provider HEALTH MAINTENANCE Final Result * Cervical Cancer Screening: HPV (06/08/2021) [facility] Cervical Cancer Screening: HPV abstract care everywhere /sr Result [facility] Historical Provider HEALTH MAINTENANCE Final Result * Hepatitis C Screening (10/02/2012) [facility] Hepatitis C Screening abstracted Historical Provider HEALTH MAINTENANCE Final Result from Last 3 Months or Most Recently Relevant to Health Maintenance Insurance [facility] Care Teams Office Electrician Relationship Specialty Start Date End Date Lakeisha Figueroa MD [address] [place] [phone] PCP - General Internal Medicine 02/01/1995
[2024-11-27 16:35] VITALS: BP 121/68; PULSE 93; RESP 15; TEMP 36.9; O2SAT 93
[2024-11-27] MEDS: iohexoL 350 MG/ML 100 ML INFUS..BTL IV (16:58)
[2024-11-27 18:13] VITALS: BP 136/81; PULSE 88; RESP 20; TEMP 37.3; O2SAT 92
--- NOTE | 2024-11-27 18:18 | PC.NURSE ---
pt is alert and oriented, skin pwd, respirations even and unlabored, ls clear, pt reports having covid about 4 weeks and since then just not feeling right, sob with exertion , dry cough, intermittent fevers at home, this rn noticed that while the pt is resting in the stretcher the oxygen will dip down as low as 90% and come right up to 96%.
[2024-11-27 18:37] VITALS: PULSE 108; O2SAT 92
--- NOTE | 2024-11-27 18:37 | PC.NURSE ---
did ambulation saturation oxygen stayed at 92% but hr increased to 108
[2024-11-27 19:07] VITALS: BP 000/00; PULSE 108; RESP 20; TEMP 37.3; O2SAT 92
== END 2024-11-27 19:09 | disposition home or self-care (01) ==
PROVIDERS: Emergency Medicine; Physician Assistant Medical; Emergency Provider Emergency Medicine; PCP Internal Medicine
DX: J06.9 Acute upper respiratory infection, unspecified (principal); R50.9 Fever, unspecified; M79.10 Myalgia, unspecified site; R05.9 Cough, unspecified; R06.02 Shortness of breath; R53.1 Weakness; Z11.52 Encounter for screening for COVID-19; Z79.899 Other long term (current) drug therapy; Z51.81 Encounter for therapeutic drug level monitoring
CPT/HCPCS: 36415; 71046; 71275; 80053; 81003; 83690; 83735; 83880; 84484; 85007; 85025; 85027; 85379; 86140; 87502; 87633; 87635; 93005; 99285; Q9967

== ENCOUNTER → 2024-11-27 12:15 | Outpatient (BNV) | payer BC, SELFPAY | PROVIDERS: PCP Internal Medicine; Visit Provider Radiology Diagnostic Radiology | DX: R06.02 Shortness of breath (principal); R79.89 Other specified abnormal findings of blood chemistry; R50.9 Fever, unspecified; R06.09 Other forms of dyspnea | CPT/HCPCS: 71046; 71275 ==

== ENCOUNTER → 2024-11-27 13:55 | Outpatient (BNV) | payer BC, SELFPAY | PROVIDERS: Emergency Provider Emergency Medicine; PCP Internal Medicine; Visit Provider Internal Medicine Cardiovascular Disease | DX: R06.02 Shortness of breath (principal) | CPT/HCPCS: 93010 ==

== ENCOUNTER 2024-11-29 07:27 | Outpatient (REF) | payer BC, SELFPAY ==
--- OUTSIDE RECORDS SUMMARY | 2024-11-26 08:30 | XMS_ITS | Encounter Summary ---
Author Organization [facility] Address [address] [place] [address] Care Team Providers Care Demurrage Man Name Role Phone Lakeisha Figueroa MD Primary Care Provider [phone] Reason for Visit * Reason Comments Diabetes Fsbs 134 Palpitations Encounter Details Date Type Department Care Team (Late st Contact Info) Description 11/26/2024 8:30 AM EDT Office Visit Adult Medicine [address] [phone] Lakeisha Figueroa MD [address] [place] [address] Viral illness (Primary Dx); Type 2 diabetes [...] female HPI She comes for evaluation with [id number]-[id number] diabetes with obesity, GE reflux, elevated cholesterol. [...] Care Team (Late st Contact Info) Description 12/06/2024 3:45 PM EDT Office Visit Adult Medicine [address] [phone] Sofia Jenkins PA [address] [place] [address] 02/05/2025 3:30 PM EST Office Visit Adult Medicine [address] [phone] Lakeisha Figueroa MD [address] [place] [address] documented as of this encounter Visit Diagnoses [...] documented as of this encounter Care Teams Demurrage Man Relationship Specialty Start Date End Date Lakeisha Figueroa MD [address] [place] [address] PCP - General Internal Medicine 02/01/1995 documented as of this encounter
--- OUTSIDE RECORDS SUMMARY | 2024-11-29 07:31 | XMS_ITS | Clinical Summary ---
Author Organization [address] Address [address] [place] [phone] Phone Care Team Providers Care Health Aide Name Role Phone Lakeisha Figueroa MD Primary Care Provider [phone] Allergies Active Allergy Reactions Criticality Noted Date [...] 8:30 AM EDT Office Visit Adult Medicine [address] [phone] Lakeisha Figueroa MD Viral illness (Primary Dx); Type 2 diabetes mellitus with obesity; Hyperlipidemia LDL goal <70; Gastroesophageal reflux disease without esophagitis; Palpitations 11/18/2024 3:30 PM EDT Office Visit Adult [address] [phone] Sofia Jenkins PA Elevated blood pressure reading (Primary Dx); Type 2 diabetes mellitus with obesity; Obesity (BMI 30.0-34.9) 11/16/2024 11:15 AM EDT - 11/16/2024 11:59 PM EDT Hospital Encounter Radiology Department - [address] [phone] Breast screening Discharge Disposition: Home or Self Care 10/22/2024 8:45 AM EDT Office Visit Adult Medicine [address] [phone] Lakeisha Figueroa MD Type 2 diabetes mellitus with obesity ([facility] V24, [facility] V28) (Primary Dx); Hypercholesteremia; Gastroesophageal reflux disease [...] 3:45 PM EDT Office Visit Adult Medicine [address] [phone] Sofia Jenkins PA [address] [place], [place] 02/05/2025 3:30 PM EST Office Visit Adult Medicine [facility] [address] [place], [place] [phone] Lakeisha Figueroa MD [address] [place], [place] Health Maintenance Due Date Last Done [...] EDT Type 2 diabetes mellitus with obesity (CMS/HCC V24, [facility] V28) HEMOGLOBIN A1C Routine 10/17/2024 7:38 AM EDT Type 2 diabetes mellitus with obesity (CMS/HCC V24, CMS/HCC V28) LIPID PANEL WITH REFLEX TO DIRECT LDL Routine 10/17/2024 7:38 AM EDT Hypercholesteremia MICROALBUMIN CREATININE URINE RATIO Routine 10/17/2024 7:38 AM EDT Type 2 diabetes mellitus with obesity ([facility] V24, [facility] V28) DIABETES FOOT EXAM Routine 09/29/2023 DIABETES [...] is recommended in 1 year. Mammo Location: [facility], [address] [place] [address], [facility], . -------- FINAL REPORT -------- Dictated By: Melanie Dominique Dictated Date: 11/19/2024 13:00 ET Assigned Physician: Melanie Dominique Reviewed and Electronically Signed By: Melanie Dominique Signed Date: 11/19/2024 13:04 ET Workstation ID: [id number] Transcribed By: Self Edit Transcribed Date: 11/19/2024 [...] is recommended in 1 year. Mammo Location: [facility], [address] [place] [address], [id number], . -------- FINAL REPORT -------- Dictated By: Melanie Dominique Dictated Date: 11/19/2024 13:00 ET Assigned Physician: Melanie Dominique Reviewed and Electronically Signed By: Melanie Dominique Signed Date: 11/19/2024 13:04 ET Workstation ID: [id number] Transcribed By: Self Edit Transcribed Date: 11/19/2024 13:00 ET us Lakeisha Figueroa MD IM BI PROCEDURES Final Result * (ABNORMAL) Lipid panel with reflex to direct LDL (10/17/2024 7:38 AM EDT) Cholesterol 208(H) 0 - 200 mg/dL LAB CHEMISTRY METHOD 10/17/2024 12:12 PM EDT [facility] Triglycerides 164(H) 0 - 150 mg/dL LAB CHEMISTRY METHOD 10/17/2024 12:12 PM EDT [facility] HDL 59 >=40 mg/dL LAB CHEMISTRY METHOD 10/17/2024 12:12 PM EDT [facility] LDL Calculated 116(H) 0 - 100 mg/dL LAB CHEMISTRY METHOD 10/17/2024 12:12 PM EDT [facility] Comment:Estimated LDL Calcul ated using equation: Total cholesterol - HDL cholesterol - (Triglycerides/5) VLDL Cholesterol Alireza 32.8 mg/dL LAB CHEMISTRY METHOD 10/17/2024 12:12 PM EDT [facility] Non HDL Chol. (LDL+VLDL) 149(H) <145 mg/dL LAB CHEMISTRY METHOD 10/17/2024 12:12 PM EDT [facility] Chol/HDL Ratio 3.5 0.0 - 4.4 LAB CHEMISTRY METHOD 10/17/2024 12:12 PM EDT [facility] Blood Venous blood specimen / Unknown Venipuncture / Unknown 10/17/2024 7:38 AM EDT 10/17/2024 10:35 AM EDT us Lakeisha Figueroa MD LAB BLOOD ORDERABLES Final Resul t [facility] [address] [place] [address], * Microalbumin creatinine urine ratio (10/17/2024 7:38 AM EDT) Creatinine, Urine 96.0 mg/dL LAB CHEMISTRY METHOD 10/17/2024 12:43 PM EDT [facility] Microalb, Ur 15.9 0.0 - 29.0 mg/L LAB CHEMISTRY METHOD 10/17/2024 12:43 PM EDT [facility] Microalb/Creat Ratio 17 <30 mg/g creat LAB CHEMISTRY METHOD 10/17/2024 12:43 PM EDT [facility] Urine Urine specimen obtained by clean catch procedure / Unknown Non-blood Collection / Unknown 10/17/2024 7:38 AM EDT 10/17/2024 10:34 AM EDT us Lakeisha Figueroa MD LAB URINE ORDERABLES Final Resul t Performing Organization Address [facility]/ZIP Co de Phone Number [facility] [address] [place] [address], [place] [phone] * (ABNORMAL) Hemoglobin A1c (10/17/2024 7:38 AM EDT) Pathologist [facility] Hemoglobin A1C 8.0(H) <6.5 % LAB CHEMISTRY METHOD 10/17/2024 1:41 PM EDT [facility] Mean Bld Glu Estim. 183 mg/dL LAB CHEMISTRY METHOD 10/17/2024 1:41 PM EDT [facility] Blood Venous blood specimen / Unknown Venipuncture / Unknown 10/17/2024 7:38 AM EDT 10/17/2024 10:39 AM EDT us Lakeisha Figueroa MD LAB BLOOD ORDERABLES Final Resul t Performing Organization Address [facility]/ZIP Co de Phone Number [facility] [address] [place] [address], [place] [phone] * (ABNORMAL) Comprehensive metabolic panel (10/17/2024 7:38 AM EDT) Pathologist [facility] Sodium 137 133 - 145 mmol/L LAB CHEMISTRY METHOD 10/17/2024 12:12 PM EDT [facility] Potassium 4.3 3.5 - 5.5 mmol/L LAB CHEMISTRY METHOD 10/17/2024 12:12 PM EDT [facility] Chloride 104 96 - 110 mmol/L LAB CHEMISTRY METHOD 10/17/2024 12:12 PM EDT [facility] CO2 26 21 - 32 mmol/L LAB CHEMISTRY METHOD 10/17/2024 12:12 PM [facility] Anion Gap 7 3 - 11 LAB CHEMISTRY METHOD 10/17/2024 12:12 PM [facility] Glucose 158(H) 70 - 100 mg/dL LAB CHEMISTRY METHOD 10/17/2024 12:12 PM [facility] BUN 22 5 - 25 mg/dL LAB CHEMISTRY METHOD 10/17/2024 12:12 PM [facility] Creatinine 0.71 0.50 - 1.10 mg/dL LAB CHEMISTRY METHOD 10/17/2024 12:12 PM [facility] eGFR 96 >=60 mL/min/1. 73m2 LAB CHEMISTRY METHOD 10/17/2024 12:12 PM [facility] Comment:Calculation based on the Chronic Kidney Disease Epidemiology Collaboration (CKD-EPI) equation refit without adjustment for race. BUN/Creatinine Ratio 31.0 LAB CHEMISTRY METHOD 10/17/2024 12:12 PM [facility] Calcium 9.5 8.5 - 10.5 mg/dL LAB CHEMISTRY METHOD 10/17/2024 12:12 PM [facility] AST (SGOT) 24 10 - 42 unit/L LAB CHEMISTRY METHOD 10/17/2024 12:12 PM [facility] ALT (SGPT) 40 10 - 60 unit/L LAB CHEMISTRY METHOD 10/17/2024 12:12 PM [facility] Alkaline Phosphatase 55 42 - 121 unit/L LAB CHEMISTRY METHOD 10/17/2024 12:12 PM [facility] Total Protein 7.2 6.0 - 8.0 g/dL LAB CHEMISTRY METHOD 10/17/2024 12:12 PM [facility] Albumin 4.3 3.2 - 5.0 g/dL LAB CHEMISTRY METHOD 10/17/2024 12:12 PM [facility] Total Bilirubin 0.5 0.0 - 1.4 mg/dL LAB CHEMISTRY METHOD 10/17/2024 12:12 PM EDT [facility] Blood Venous blood specimen / Unknown Venipuncture / Unknown 10/17/2024 7:38 AM EDT 10/17/2024 10:35 AM EDT Lakeisha Figueroa MD LAB BLOOD ORDERABLES Final Resul t [facility] [address] [place] [address], * Diabetes Foot Exam (09/29/2023) [facility] Diabetes: Annual Foot Exam abstracted Historical Provider HEALTH MAINTENANCE Final Result * Diabetes Eye Exam (09/26/2023) [facility] Diabetes: Annual Retina Eye Exam abstracted Result [facility] Historical Provider HEALTH MAINTENANCE Final Result * Colonoscopy (11/26/2021) [facility] Colonoscopy abstract [facility] /sr Anatomical Region Laterality Modality Other Result [facility] Historical Provider HEALTH MAINTENANCE Final Result * Cervical Cancer Screening: HPV (06/08/2021) [facility] Cervical Cancer Screening: HPV abstract care everywhere /sr Result [facility] Historical Provider HEALTH MAINTENANCE Final Result * Hepatitis C Screening (10/02/2012) [facility] Hepatitis C Screening abstracted Result [facility] Historical Provider HEALTH MAINTENANCE Final Result from Last 3 Months or Most Recently Relevant to Health Maintenance Insurance [facility] Care Teams Health Aide Relationship Specialty Start Date End Date Lakeisha Figueroa MD [address] [place] [phone] PCP - General Internal Medicine 02[birth year]01/1995
[2024-11-29 08:25] LABS: Hematocrit 39.2 % (37.0-47.0); Hemoglobin 13.6 g/dl (12.0-16.0); Mean Corpuscular HGB Conc 34.7 g/dl (31.0-35.0); Mean Corpuscular Hemoglobin 32.1 pg (27.0-33.0); Mean Corpuscular Volume 92.5 fL (80.0-98.0); NRBC Abs Auto 0.000 X10*3/uL (0.0-0.012); NRBC Pct Auto 0.0 /100WBC (0.0-0.2); Platelet Count 179 X10*3/uL (160-400); Red Blood Count 4.24 X10*6/uL (4.20-5.50); White Blood Count 9.7 X10*3/uL (4.8-10.8)
[2024-11-29 08:55] LABS: Alanine Aminotransferase 60 U/L (0-31); Albumin Level 3.9 g/dL (3.5-5.0); Alkaline Phosphatase 64 U/L (39-117); Aspartate Amino Transferase 58 U/L (5-31); Total Protein 6.9 g/dL (6.5-8.0)
[2024-11-29 10:03] LABS: Atypical Lymph Absolute Manual 1.3 x10*3/uL; Atypical Lymphs Percent Manual 13 % (0-6); Band Neutrophils Percent 3 % (3-5); Lymphocytes Absolute Manual 6.1 X10*3/uL (1.2-4.9); Lymphocytes Percent Manual 63 % (20-40); Monocytes Absolute Manual 0.3 X10*3/uL (0.1-1.2); Monocytes Percent Manual 3 % (2-11); Neutrophils Absolute Manual 2.0 X10*3/uL (2.0-8.3); Neutrophils Percent Manual 18 % (45-73); RBC Morphology NORMAL
[2024-11-29 10:05] LABS: Smudge Cells PRESENT
[2024-11-30 09:43] LABS: Lyme Abs Screen <0.90 index
[2024-12-05 16:48] LABS: Babesia duncani Ab IgG (WA1) <1:256; E chaffeensis IgG <1:64 (<1:64); E chaffeensis IgM <1:20 (<1:20)
== END 2024-11-29 07:28 | disposition home or self-care (01) ==
LOC: HO.LAB 07:27
PROVIDERS: PCP Emergency Medicine
DX: Z01.84 Encounter for antibody response examination (principal); F20.0 Paranoid schizophrenia
CPT/HCPCS: 36415; 80076; 85007; 85025; 85027; 85652; 86140; 86308; 86617; 86618; 86666; 86753; 87040